=== PATIENT | male | born 2000 | race African-American/Black ===

== ENCOUNTER 2022-06-19 19:02 | Outpatient (CLI) | payer OTHER, SELFPAY | END 2022-06-19 19:03 | disposition home or self-care (01) | LOC: LKVREF 19:09 | PROVIDERS: PCP Family Medicine; Visit Provider Registered Nurse | DX: L30.9 Dermatitis, unspecified (principal); Z20.828 Contact with and (suspected) exposure to other viral communicable diseases | CPT/HCPCS: 86694 ==

== ENCOUNTER 2024-08-20 22:48 | Emergency (ER) | payer OTHER, SELFPAY ==
[2024-08-20 23:04] VITALS: BP 128/90; PULSE 73; RESP 12; TEMP 37; O2SAT 96; BMI 26.6
--- NOTE | 2024-08-20 23:27 | ED_ITS ---
HPI - General Adult General Chief complaint: Jaw Injury/Pain Stated complaint: Left side jaw pain Time Seen by Provider: 08/20/24 23:20 History of Present Illness HPI narrative: This 24-year-old male comes in with left-sided jaw and teeth pain. He states that it has been present for the past 2 or 3 weeks. He states that he takes ibuprofen and penicillin when it occurs and then it seems to get better. Apparently he has penicillin but has not completed any course of this medicine but rather takes that sporadically. He states that he has not contacted a dentist. He does not report any fevers. Related Data Previous Rx's ?Medication ?Instructions ?Recorded ketorolac 10 mg tablet 10 mg PO TID 5 days #15 tabs 08/20/24 Allergies Allergy/AdvReac Type Severity Reaction Status Date / Time No Known Drug Allergies Allergy Verified 08/20/24 23:10 Review of Systems Status of ROS: Reports: 10 or more systems reviewed and unremarkable except as noted in History and below Narrative: Constitutional: No fevers, no weight gain or loss. Eyes: No discharge. No vision changes. HENT: No congestion, no sore throat, no ear pain. Cardiovascular: No chest pain, no palpitations. Respiratory: No shortness of breath, no wheezes, no cough. Gastrointestinal: No abdominal pain, no vomiting, no diarrhea. Genitourinary: No dysuria, no hematuria. Musculoskeletal: Normal range of motion. Skin: No rashes, no pruritis. Neurological: No dizziness, weakness, sensory change, speech change. Endo/Heme/Allergies: No bruising or bleeding. No polydipsia. Pysch: no suicidality, no anxiety, no insomnia. All other systems reviewed and are negative. Exam Narrative: Exam Narrative: Constitutional: Well-developed, well-nourished, no acute distress. HEENT: Normocephalic, atraumatic. Oropharynx appears normal without sign of abscess. Overall rather good dentition. Neck: Normal range of motion. Nontender. Supple. Heart: Regular. No murmurs. Normal rate. Intact distal pulses. Lungs: Clear to auscultation. No chest discomfort. No wheezes, rhonchi, or rales. Abdomen: Normal bowel sounds. Nontender. No rebound tenderness. Genitalia: Deferred. Back: No midline tenderness. Normal range of motion. Extremities: Normal range of motion. No injury. Skin: Intact. No rash. Warm. No erythema or pallor. Neurologic: No altered sensation. No weakness. Alert and oriented. Psychiatric: No suicidality. No anxiety or depression. No insomnia. Nursing notes and vitals signs are reviewed. Const: Vital Signs, click to edit/add: Vital Signs - 24 hr 08/20/24 23:04 Temperature 98.6 F Pulse Rate [Right Pulse Oximeter] 73 Respiratory Rate 12 Blood Pressure [Ri ght Upper Arm] 128/90 H Pulse Oximetry 96 Oxygen Delivery Me thod Room Air Course Vital Signs Vital signs: Initial Vital Signs Temperature 98.6 F 08/20/24 23:04 Temperature Source Temporal Artery Scan 08/20/24 23:04 Pulse Rate 73 08/20/24 23:04 Pulse Rhythm Regular 08/20/24 23:04 Pulse Strength 3+ Normal 08/20/24 23:04 Respiratory Rate 12 08/20/24 23:04 Blood Pressure 128/90 H 08/20/24 23:04 Blood Pressure Mean 102 08/20/24 23:04 Blood Pressure Position Sitting 08/20/24 23:04 Pulse Oximetry 96 08/20/24 23:04 Oxygen Delivery Method Room Air 08/20/24 23:04 Vital Signs Temperature 98.6 F 08/20/24 23:04 Pulse Rate 73 08/20/24 23:04 Respiratory Rate 12 08/20/24 23:04 Blood Pressure 128/90 H 08/20/24 23:04 Pulse Oximetry 96 08/20/24 23:04 Oxygen Delivery Method Room Air 08/20/24 23:04 Temperature 98.6 F 08/20/24 23:04 Pulse Rate 73 08/20/24 23:04 Respiratory Rate 12 08/20/24 23:04 Blood Pressure 128/90 H 08/20/24 23:04 Pulse Oximetry 96 08/20/24 23:04 Oxygen Delivery Method Room Air 08/20/24 23:04 Medical Decision Making MDM Narrative Medical decision making narrative: This patient comes in with dental pain as described above. I a stated that we do not work on teeth here but will try to help him feel better temporarily. I a strongly encouraged him to contact a dentist for more definitive diagnosis and treatment of the underlying cause. The patient did receive an oral dose of Toradol here and a prescription for the same. He also received a prescription for amoxicillin. Discharge Plan Discharge Clinical Impression: Pain, dental Patient Disposition: Home, Self-Care Condition: Unchanged Additional Instructions: Take medication as prescribed. Follow-up with dentist as soon as possible ongoing management. Prescriptions: New ketorolac 10 mg tablet 10 mg PO TID 5 Days Qty: 15 0RF Follow Up/Referrals: Roscoe Cuenca MD [Primary Care Provider, Family Practice] Stand Alone Forms: [employer] Info Instructions
[2024-08-20] MEDS: KETOROLAC 10 MG TABLET PO (23:40)
--- OUTSIDE RECORDS SUMMARY | 2024-08-20 23:45 | XMS_ITS | Patient Health Record ---
Author Organization [facility] Address [address] [place] [id number] Care Team Providers Care Alcohol Rubber Name Role Phone Bhupinder Cuenca MD Primary Care Provider [phone] Reason For Referral No Information Social History Tobacco Use: Social History Observation Description Date Details (start date - stop date) Never Smoker NA - NA SMOKING STATUS 13Y AND OLDER Question Answer Notes Are you a: Non-Smoker Problems Problem Type SNOMED Code ICD Code Onset Dates Problem Status W/U Status Risk Notes Problem Nocturnal enuresis (5005347) Nocturnal enuresis (788.36) Active confirmed Problem Constipation (94057896) Constipation (564.00) Active confirmed Plan Of Treatment No Information Insurance Providers Payer Name Payer Address Payer Phone Subscriber Number Group Number Insured Name Patient Relationship to Insured Coverage Start Date Coverage End Date [facility] [address] [address] [place] [phone] [id number] Natali Coon [facility] - Insured has Financial Responsibility 3 Medical (General) History Medical History History ICD Code Eyes: No Neurologic: No Endocrine: No Pulmonary: No Cardiac: No Gastrointestinal: No Genitourinary: No Infections: No Syndromes/Chromosomal/Other Problems: no ne Hospitalizations: none Problems (for child) during :: none Baby Born at: 37 1/2 Weight: 7lbs 10oz Problems at : cord wrapped around h is neck Medications: none Surgical History Surgery Date(Month/Year) Broken wrist 03/27/2012
--- OUTSIDE RECORDS SUMMARY | 2024-08-20 23:45 | XMS_ITS | Clinical Summary ---
Author Organization [facility] Address [facility] [place] [address] Care Team Providers Care Utility Service Worker Name Role Phone Pcp, No Primary Care Provider Unavailabl e Jeffry Tovar MD Unavailable Unavailable Allergies No known active allergies Medications rizatriptan (MAXALT HAND SCUDDER) 10 mg disintegrating tabletIndications:N onintractable headache, unspecified chronicity pattern, unspecified headache type Place 1 Tablet (10 mg) on the tongue 2 times daily if needed for Migraine. Give at minimum 2hrs apart. Max Dose: 30mg per 24hrs. 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 Gender Identity Not on file Sexual Orientation Not on file Last Filed Vital Signs Vital Sign Reading Time Taken Comments Blood Pressure 121/71 06/01/2021 4:30 PM POUNCING MACHINE OPERATOR Pulse 79 06/01/2021 4:30 PM POUNCING MACHINE OPERATOR Temperature 36.2 C (97.2 F) 06/01/2021 2:40 PM POUNCING MACHINE OPERATOR Respiratory Rate 14 06/01/2021 4:30 PM POUNCING MACHINE OPERATOR Oxygen Saturation 99% 06/01/2021 4:30 PM POUNCING MACHINE OPERATOR Inhaled Oxygen Concentration - - Weight 79.4 kg (175 lb) 06/01/2021 2:40 PM POUNCING MACHINE OPERATOR Height 167.6 cm (5' 6) 06/01/2021 2:40 PM POUNCING MACHINE OPERATOR Body Mass Index 28.25 06/01/2021 2:40 PM POUNCING MACHINE OPERATOR Plan of Treatment Not on file Care Teams Utility Service Worker Relationship Specialty Start Date End Date Pcp, No . PCP - General 06/01/21 Jeffry Tovar MD 06/01/21
== END 2024-08-20 23:45 | disposition home or self-care (01) ==
LOC: ED 23:43
PROVIDERS: Emergency Provider Emergency Medicine Emergency Medical Services; PCP Family Medicine
DX: K08.89 Other specified disorders of teeth and supporting structures (principal)
CPT/HCPCS: 99283; 99284; A9270